=== PATIENT | female | born 1990 | race Caucasian/White ===

== ENCOUNTER 2019-09-23 14:15 | Inpatient (IN) | payer OTHER ==
[~2019-09-23] VITALS: Ht 162.6 cm; Wt 85.3 kg
[2019-10-01] MEDS ORDERED: PRENATAL PLUS1 EAC1 PO (10:09)
== END 2019-10-03 16:03 | disposition home or self-care (01) | DRG 807 ==
LOC: SURG-SUITE 10-01 09:07 → LDR 10-01 09:07 → SURG-SUITE 10-01 14:20 → OB/GYN 10-07 14:15 → LDR 10-07 14:15
PROVIDERS: ADMIT Obstetrics & Gynecology; ATTEND Obstetrics & Gynecology
PROC: 10E0XZZ Delivery of Products of Conception, External Approach (ICD-10-PCS; principal; 2019-10-01)
PROC: 4A0HXFZ Measurement of Products of Conception, Cardiac Rhythm, External Approach (ICD-10-PCS; 2019-10-01)
DX: O80 Encounter for full-term uncomplicated delivery (principal); Z37.0 Single live birth; Z3A.39 39 weeks gestation of pregnancy; Z20.828 Contact with and (suspected) exposure to other viral communicable diseases

== ENCOUNTER 2023-10-13 12:10 | Emergency (ER) | payer OTHER ==
[~2023-10-13] VITALS: Ht 162.6 cm; Wt 78.0 kg
[~2023-10-13 12:10] MED LIST: PRENATAL PLUS1 EAC1 PO
[2023-10-13] MEDS ORDERED: KETOROLAC TROMETHAMINE 30 MG VIAL IM STA (17:25)
[2023-10-13] MEDS ORDERED: ORPHENADRINE CITRATE 30 MG/ML AMPUL IM STA (17:26)
[2023-10-13] MEDS ORDERED: ORPHENADRINE CITRATE 30 MG/ML AMPUL ONE (17:43)
[2023-10-13] MEDS ORDERED: KETOROLAC TROMETHAMINE 30 MG VIAL ONE (17:44)
== END 2023-10-13 18:07 | disposition home or self-care (01) ==
LOC: ER 12:11
DX: S19.9XXA Unspecified injury of neck, initial encounter (principal); S49.82XA Other specified injuries of left shoulder and upper arm, initial encounter; V49.88XA Car occupant (driver) (passenger) injured in other specified transport accidents, initial encounter; Y93.89 Activity, other specified; Y92.89 Other specified places as the place of occurrence of the external cause; Y99.8 Other external cause status; Z88.0 Allergy status to penicillin